=== PATIENT | female | born 1985 | race Caucasian/White ===

== ENCOUNTER → 2017-10-13 13:00 | Outpatient (CLI) | payer OTHER, SELFPAY ==
[2017-10-16 14:27] LABS: HPV APTIMA, High Risk Negative (Negative)
== END ==
PROVIDERS: Visit Provider Obstetrics & Gynecology
DX: Z12.4 Encounter for screening for malignant neoplasm of cervix (principal)
CPT/HCPCS: 88175; G0145

== ENCOUNTER → 2019-11-22 11:48 | Outpatient (CLI) | payer SELFPAY ==
[2019-11-03 10:27] VITALS: BMI 21.1
[2019-11-22 12:35] LABS: Estradiol 32.6 pg/mL; Follicle Stimulating Hormone 6.4 mIU/mL; Prolactin 6.7 ng/mL; Thyroid Stim Hormone (TSH) 3.05 uIU/mL (0.358-3.74)
== END ==
PROVIDERS: Referring Provider Obstetrics & Gynecology; Visit Provider Obstetrics & Gynecology
DX: N97.9 Female infertility, unspecified (principal)
CPT/HCPCS: 82670; 83001; 84146; 84443

== ENCOUNTER → 2019-12-10 07:36 | Outpatient (CLI) | payer SELFPAY ==
[2019-11-03 10:27] VITALS: BMI 21.1
[2019-12-12 09:41] LABS: Progesterone Level 14.35 ng/mL (See Comment)
== END ==
PROVIDERS: Referring Provider Nurse Practitioner Women's Health; Visit Provider Nurse Practitioner Women's Health
DX: N97.9 Female infertility, unspecified (principal)
CPT/HCPCS: 36415; 84144

== ENCOUNTER 2022-05-11 00:10 | Inpatient (IN) | payer OTHER, SELFPAY ==
[2022-05-11] VITALS (40 sets, daily range): BP systolic 99–145; BP diastolic 56–81; PULSE 77–112; RESP 14–20; TEMP 36.1–37.3; O2SAT 94–99; BMI 31.4
[2022-05-11] MEDS: Lactated Ringers 1,000 ML 50 ML IV (00:30)
[2022-05-11 00:59] LABS: Absolute Neutrophil Count 18.4 X10^3/uL (2.0-7.7); Basophil# 0.03 X10^3/uL; Basophil% 0.1 % (0-1); Hematocrit 38.5 % (37-47); Lymphocyte % 4.4 % (19-41); Mean Corp Hgb Conc 33.8 g/dL (32-36); Mean Corpuscular Hgb 28.4 pg (27.0-32.0); Mean Corpuscular Volume 84.1 fL (81-99); Mean Platelet Vol. 8.6 fl (6.2-12.0); Monocyte# 0.77 X10^3/uL; Monocyte% 3.8 % (0-10); NRBC Flagged by Analyzer 0 % (0-5); Neutrophil % 90.6 % (47-70); Platelet Count 239 K/mm3 (150-450); RBC Distribution Width CV 17.4 % (11.6-14.6); RBC Distribution Width SD 53.3 fl (35.1-43.9); Red Blood Count 4.58 M/mm3 (4.2-5.4); White Blood Count 20.3 K/mm3 (4.4-11.0)
[2022-05-11] MEDS: Oxytocin 15 Units/NS 250ml 15 UNITS/250 ML IV.SOLN 2 UNITS IV (01:06)
[2022-05-11 02:26] LABS: Rubella IgG Reactive (Nonreactive); Syphilis Antibodies Non-reactive
[2022-05-11 03:05] LABS: HIV - WCH Non-Reactive (Nonreactive); Hepatitis B Surface Antigen Non-Reactive (Nonreactive); Hepatitis C Antibody Non-Reactive (Nonreactive)
[2022-05-11] MEDS: LACTATED RINGERS 500 ML 999 ML IV ×3 (03:07→13:09)
[2022-05-11] MEDS: fentaNYL-bupivacaine (epidural) 100 ML BAG EPIDURAL ×3 (04:10→13:27)
[2022-05-11] MEDS: Lactated Ringers 1,000 ML 200 ML IV ×2 (04:40→10:20)
[2022-05-11 05:52] LABS: Bacteria 0 SEEN /hpf (None Seen); Mucous, Urine 0 SEEN /hpf (<or=2+); Squamous Epithelial Cells - UA 0 SEEN /hpf (5-10); White Blood Cells 0 SEEN /hpf (0-5)
[2022-05-11 07:35] LABS: Glucose, Dipstick Normal (Normal); Ketone-Dipstick 15 mg/dl (Negative); Leukocyte Esterase-Dipstick 25 /ul (Negative); Nitrite-Dipstick Negative (Negative); Occult Blood-Urine 150 /ul (Negative); Protein-Dipstick 30 mg/dl (Negative); Urine Bilirubin Dipstick Negative (Negative); Urine Urobilinogen Normal (Normal)
[2022-05-11 07:38] LABS: Color, Urine YELLOW (Yellow); Urine Clarity Clear (Clear)
[2022-05-11 07:39] LABS: Red Blood Cells-Urine 5-10 SEEN /hpf (0-5)
--- NOTE | 2022-05-11 08:08 | HP.PCM.OB_ITS ---
HPI - General General Date of Admission: 05/11/22 HPI Narrative MAKENZIE GARCIA, is a 36 F at 41.6 weeks gestation who presents with contractions and S.R.O.M yesterday. 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 Per axminster rug setter, patient's water broke yesterday around noon and she has been 9 cm and pushing with no progress. Patient's pain was becoming unbearable and she was brought in for an evaluation by axminster rug setter. has been uncomplicated. She did not complete 1 hour GCT or GBS swab and is refusing prophylactic antibiotics. Maternal Data Information SERJIO Calculator Estimated Delivery Date Method Current WG Current Estimate 04/28/22 LMP (Certain) 41w 6d PFSH PFS Medical History (Updated 05/11/22 @ 08:17 by Bárbara Veras CNM) ADHD Home Medications prenat.vits,angi,lez-zcxf-mjxal 1 tab PO DAILY 09/17/21 [History Last Taken 05/10/22] Allergy/AdvReac Type Severity Reaction Status Date / Time amoxicillin [From Amoxil] Allergy Mild Rash Verified 09/17/21 12:54 Family History Uncle Cancer melanoma COPD (chronic obstructive pulmonary disease) Grandmother Hypertension CVA (cerebral vascular accident) Surgical History S/P wisdom tooth extraction Social History (Updated 09/17/21 @ 12:57 by Tayler Delacruz NP, FIRER LOCOM[employer]IVE [employer]ANE-[employer]) adopted: No household members: spouse current occupational status: employed current occupation: [employer] pets and animals: Yes (avoid litter box) pets and animals: cat(s) Smoking Status: Never smoker alcohol intake: current details: social substance use type: does not use caffeine: Yes what type of physical activity do you participate in: other details: core exercises seatbelt use: always do you feel safe at home: Yes additional social history: 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 History 1 Elective abortions Hx Para 0 Spontaneous abortions Hx # Term Pregnancies Ectopic pregnancies Hx # Pregnancies Multiple births # of living children Visit Details OB Flowsheet Initial Weight: Not Recorded Date -?-?-?-?-?-?-?-?-?-?-?-?- EGA Weight BP Urine Prot -?-?-?-?-?-?-?-?-?-?-?-?- Glucose FHR FuHt Pres Dilation -?-?-?-?-?-?-?-?-?-?-?-?- Effaced St Visit Note 05/11/22 -?-?-?-?-?-?-?-?-?-?-?-?- 41w 6d 171 lb 12.8 oz 117/7 3 142/77 132/76 120/69 145/64 134/73 118/66 118/69 112/63 113/65 109/63 113/69 116/66 110/62 30 mg/dl (Negative) H -?-?-?-?-?-?-?-?-?-?-?-?- -?-?-?-?-?-?-?-?-?-?-?-?- NST FHR Rate Baby A Baseline: 125 Variability:: Moderate Accelerations:: 15 x 15 Decelerations:: None NST Reactive:: Yes FHR Category:: Category I Uterine Activity:: TOCO- reading 8-15 minutes, palpates moderate and relaxed in between ROS Eyes Eyes: Denies blurry vision, change in vision or spots in vision ENT HEENT: Denies dizziness or headache(s) Cardiovascular Cardiovascular: Denies abdominal pain, chest pain or dyspnea Respiratory/Chest Respiratory/Chest: Denies cough, dyspnea, shortness of breath at rest or shortness of breath with exertion Gastrointestinal Gastrointestinal: Denies abdominal pain, diarrhea or vomiting Genitourinary Genitourinary: Denies change in urinary stream, difficulty urinating or dysuria Musculoskeletal Musculoskeletal: Reports none Integumentary Integumentary: Denies rash Neurologic Neurologic: Denies dizziness, headache(s), memory loss or weakness Psychiatric Psychiatric: Reports none Vital Signs Vital Signs Vital Signs: 05/11/22 00:45 05/11/22 00:45 05/11/22 00:45 Temperature Temperature Source Temporal Pulse Rate 101 H Blood Pressure 117/73 BP Systolic 117 BP Diastolic 73 Pulse Ox 05/11/22 00:45 05/11/22 02:14 05/11/22 02:14 Temperature 98.1 F Temperature Source Pulse Rate 112 H Blood Pressure 142/77 H BP Systolic 142 BP Diastolic 77 Pulse Ox 05/11/22 02:14 05/11/22 02:14 05/11/22 03:55 Temperature 97.4 F L Temperature Source Temporal Pulse Rate 108 H Blood Pressure BP Systolic BP Diastolic Pulse Ox 05/11/22 03:55 05/11/22 03:57 05/11/22 03:57 Temperature Temperature Source Pulse Rate 110 H Blood Pressure 132/76 H BP Systolic 132 BP Diastolic 76 Pulse Ox 99 05/11/22 04:00 05/11/22 04:00 05/11/22 04:02 Temperature Temperature Source Pulse Rate 103 H Blood Pressure 120/69 BP Systolic 120 BP Diastolic 69 Pulse Ox 98 05/11/22 04:02 05/11/22 04:05 05/11/22 04:05 Temperature Temperature Source Pulse Rate 100 97 Blood Pressure BP Systolic BP Diastolic Pulse Ox 98 05/11/22 04:10 05/11/22 04:10 05/11/22 04:10 Temperature Temperature Source Pulse Rate 107 H Blood Pressure 145/64 H BP Systolic 145 BP Diastolic 64 Pulse Ox 97 05/11/22 04:12 05/11/22 04:12 05/11/22 04:15 Temperature Temperature Source Pulse Rate 107 H 111 H Blood Pressure 134/73 H BP Systolic 134 BP Diastolic 73 Pulse Ox 05/11/22 04:15 05/11/22 04:19 05/11/22 04:19 Temperature Temperature Source Pulse Rate 99 Blood Pressure 118/66 BP Systolic 118 BP Diastolic 66 Pulse Ox 97 05/11/22 04:19 05/11/22 04:20 05/11/22 04:20 Temperature Temperature Source Pulse Rate 98 Blood Pressure BP Systolic BP Diastolic Pulse Ox 94 97 05/11/22 04:24 05/11/22 04:24 05/11/22 04:25 Temperature Temperature Source Pulse Rate 101 H 108 H Blood Pressure 118/69 BP Systolic 118 BP Diastolic 69 Pulse Ox 05/11/22 04:27 05/11/22 04:27 05/11/22 04:30 Temperature Temperature Source Pulse Rate 100 96 Blood Pressure 112/63 BP Systolic 112 BP Diastolic 63 Pulse Ox 05/11/22 04:30 05/11/22 04:33 05/11/22 04:33 Temperature Temperature Source Pulse Rate 82 Blood Pressure 113/65 BP Systolic 113 BP Diastolic 65 Pulse Ox 96 05/11/22 04:35 05/11/22 04:35 05/11/22 04:37 Temperature Temperature Source Pulse Rate 94 Blood Pressure 109/63 BP Systolic 109 BP Diastolic 63 Pulse Ox 98 05/11/22 04:37 05/11/22 04:40 05/11/22 04:40 Temperature Temperature Source Pulse Rate 91 81 Blood Pressure BP Systolic BP Diastolic Pulse Ox 97 05/11/22 04:37 05/11/22 04:37 05/11/22 05:31 Temperature 97.8 F Temperature Source Temporal Pulse Rate Blood Pressure 113/69 BP Systolic 113 BP Diastolic 69 Pulse Ox 05/11/22 05:31 05/11/22 05:31 05/11/22 05:31 Temperature 97.1 F L Temperature Source Temporal Pulse Rate 95 Blood Pressure BP Systolic BP Diastolic Pulse Ox 05/11/22 07:24 05/11/22 07:24 05/11/22 06:39 Temperature Temperature Source Temporal Pulse Rate 90 Blood Pressure 116/66 BP Systolic 116 BP Diastolic 66 Pulse Ox 05/11/22 06:39 05/11/22 07:24 05/11/22 07:24 Temperature 97.8 F 98.0 F Temperature Source Temporal Pulse Rate Blood Pressure BP Systolic BP Diastolic Pulse Ox 05/11/22 08:06 05/11/22 08:06 05/11/22 08:06 Temperature Temperature Source Temporal Pulse Rate 84 Blood Pressure 110/62 BP Systolic 110 BP Diastolic 62 Pulse Ox 05/11/22 08:06 Temperature 97.5 F L Temperature Source Pulse Rate Blood Pressure BP Systolic BP Diastolic Pulse Ox Weight Weight: 171 lb 12.8 oz Body Mass Index (BMI) 31.4 Physical Exam Const alert, oriented x3 and no apparent distress General Appearance: cooperative Orientation / Consciousness: awake Exam Limitations: no limitations HEENT normocephalic Head and Scalp: normal to inspection Eyes General Eye: normal appearance of both eyes Neck full ROM and no lymphadenopathy Lymph Lymphatic: no lymphadenopathy noted Chest inspection of chest normal Resp normal respiratory effort, normal air movement and clear to auscultation bilaterally Effort and Inspection: able to speak in complete sentences and symmetric chest movement Cardio regular rate and regular rhythm GI normal to inspection, nondistended, normoactive bowel sounds Manual OB Exam: presentation cephalic, dilated 7, effaced 70 and station - 1 Back/Spine normal ROM Extremity full ROM and no calf tenderness Skin no rashes or lesions noted General Skin Exam: no breakdown Neuro oriented x3 and CN's II-XII intact bilaterally Psych mental status grossly normal and thought process normal Labs Labs Labs: Blood Type A POSITIVE Antibody Screen NEGATIVE Hct 38.5 % (37-47) Hgb 13.0 g/dL (12.0-15.0) Syphilis Total Ab Non-reactive Rubella IgG Antibody Reactive (Nonreactive) Hep Bs Antigen Non-Reactive (Nonreactive) HIV 1&2 Antibody Non-Reactive (Nonreactive) Assessment & Plan (1) Post term , 41 weeks: (2) Spontaneous rupture of amniotic membranes: PLAN: Plan Admit to labor and delivery Routine labs- GBS UNKNOWN- refusing antibiotics CE- /-1 Contractions- irregular via TOCO Vertex - caput palpated with exam Epidural when indicated Start Pitocin IV and titrate per policy Dr. Vora involved with admission and plan of care Wheelchair Van Operator First Responder notified
[2022-05-11 08:28] LABS: Chlamydia Trachomatis by PCR Negative (Negative); Neisserai gonorrhoeae by PCR Negative (Negative); Probe Check PASS; Sample Adequacy Control PASS; Specimen Processing Control PASS
--- NOTE | 2022-05-11 11:20 | PCM.PN.BLA ---
Progress Note Patient seen at bedside. Comfortable with epidural. Denies pain. FHT tracing Cat. 2 with bouts of minimal variability and occasional late decelerations. Assessment & Plan Assessment/Plan (1) Category II heart rate tracing during labor and delivery: (2) Post term , 41 weeks: (3) Spontaneous rupture of amniotic membranes: (4) Meconium in amniotic fluid: PLAN: Plan CE /-1, unchanged from this morning's exam Light meconium noted in fluid on pad Cat. 2 tracing- reactive to scalp stimulation and interventions Discussed with patient and concern over heart rate tracing and no continued cervical change Dr. Vora notified and viewing strip
--- NOTE | 2022-05-11 12:05 | PCM.PN.BLA ---
Progress Note Decision for primary section via Dr. Vora. Discussed this decision with patient and at bedside. Questions answered. Nursing in room. Dr. Vora in route to hospital.
[2022-05-11] MEDS: Oxytocin 15 Units/NS 250ml 15 UNITS/250 ML IV.SOLN 83 UNITS IV (13:55)
[2022-05-11] MEDS: Acetaminophen 500 MG Tablet PO (14:03)
[2022-05-11] MEDS: Sodium Citrate/Citric Acid 30 ML UDC PO (14:33)
[2022-05-11] MEDS: Cefazolin 2 GM in 0.9% Normal Saline 100 ML IV (14:40)
[2022-05-11] MEDS: Methylergonovine 0.2 MG/ML Ampul IM (15:09)
--- NOTE | 2022-05-11 15:30 | PLAC_PTH ---
PATIENT: MAKENZIE GARCIA LOC: [facility] U#:[id number] AGE/SX: 36/F ROOM: [facility] RE05/11/[address]: Dr. Elizabeth Vora MD : 1985 BED: 1 DIS: 05/13/2022 SPEC #: [id number] RECD: 05/11/22 20:13 STATUS: MITCH REEmile #: [id number] PILO: 05/11/22 15:[address]: Elizabeth Vora DEPT: SURGICAL PATHOLOGY RECD BY: Hallie Carvalho ENTERED: 05/12/22 10:25 SP TYPE: PLACENTA OTHR DR: No Primary Care Phys Tissues: Placenta, NOS Procedures: Surgery Specimen Level V HEADER OPERATION: Primary section PRE-OP DIAGNOSIS: Prolonged rupture of membranes TISSUE SUBMITTED: Placenta MICROSCOPIC DIAGNOSIS Placenta: Placental disc - third trimester placenta (485 gm). Membranes - acute chorioamnionitis. Umbilical cord - three blood vessels and acute funisitis. SJ:philippe 05/14/2022 MICROSCOPIC DESCRIPTION Slides are reviewed. GROSS DESCRIPTION SPECIMEN: PLACENTA / CLINICAL INFORMATION: A. Weight: 3.795 kg B. Gestational Age: 41 weeks C. Sex: Male PLACENTAL WEIGHT (POST FIXATION): 485 gm PLACENTAL DIMENSIONS: 18 x 16 x 3 cm PLACENTAL SHAPE: Usual ovoid PLACENTAL WEIGHT FOR GESTATIONAL AGE: Within 10-99th percentile MEMBRANES - Present A. Insertion: Marginal B. Site of rupture from edge: 3 cm from edge of placental disc C. Color of membrane: Noriega-mucoidy D. Abnormalities: None UMBILICAL CORD - Present A. Color: Noriega-roach B. Insertion: Paracentral C. Length: 34 cm D. Diameter: 1 cm E. Number of vessels: Three F. Abnormalities: None PLACENTAL DISC - Present A. Color of surface: Noriega-roach B. surface abnormalities: None C. Maternal cotyledons: Intact with minimal tears D. Attached retro placental clot: No clot E. Cut surface: Dark red and spongy F. Lesions: None G. Separate clot: Absent SECTIONS SUBMITTED: 1. Membrane roll 2. Cord, maternal end 3. Cord, end 4. Placental disc, and maternal surfaces 5. Placental disc, and maternal surfaces 6. Placental disc, and maternal surfaces SJ:philippe 05/13/2022 TC:2 CPT: 97540
--- NOTE | 2022-05-11 15:39 | OP.PCM_ITS ---
Assessment & Plan (1) Meconium in amniotic fluid: (2) Category II heart rate tracing during labor and delivery: (3) Post term , 41 weeks: (4) Arrest of descent, delivered, current hospitalization: (5) deliv NOS-unsp: (6) Single live : (7) CPD (cephalo-pelvic disproportion): Maternal Data Information SERJIO Calculator Estimated Delivery Date Method Current WG Current Estimate 04/28/22 LMP (Certain) 41w 6d Final SERJIO: 04/28/22 Gestational age: 41 6/7 Details Operative Information Date of Procedure: 05/11/22 Pre-Operative Diagnosis: CPD, arrest of descent Post-Operative Diagnosis: same Classification: SUSSY Procedure Type: low transverse water pollution scientist #1: Beth Diana Type of Anesthesia: Epidural Anesthesiologist: Edie Norman Antibiotic Given: Ancef 2 grams IV x1 and Zithromax 500 mg/5 mL X1 Drain: Lopez to straight drain Estimated Blood Loss: 900 Fluids Replaced: 1000 Procedure Start Time: 14:58 Procedure Stop Time: 15:39 Time of Delivery: 15:03 Findings Description of Procedure: Patient arrived to labor and delivery after she been laboring at home and had spontaneous rupture membranes. She was 41-6/7 weeks. We tried to augment the labor with Pitocin. However even after augmentation she had minimal cervical change and dilation. The head was sent asynclitic and there was significant caput and molding. We are prepared to do a delivery, then were bumped by a more urgent delivery. heart tones had been category 2 tracing but had moderate variability and the time that the other patient had a prolonged deceleration and was taken for a . When that section was completed the patient was still 7 cm and agreed to proceed with section. Clinically, the patient meets criteria for cephalopelvic disproportion The patient was taken to the operating room. She was prepped and draped in the dorsal supine position with a leftward tilt. A Pfannenstiel skin incision was made approximately 2 cm above the symphysis pubis and carried through to underlying layer fascia with the scalpel. The fascia was incised incised in the midline and extended laterally with the Booker scissors. The fascia was dissected off the rectus muscles with blunt and sharp dissection. The rectus muscles were in the midline and the peritoneum was entered bluntly. The peritoneal incision was stretched and the bladder blade was placed. The uterine incision was made in a low transverse fashion with the scalpel and extended superiorly and inferiorly with blunt dissection. The amniotic membranes were ruptured bluntly and clear amniotic fluid returned. The infant's head was brought to the incision in the flexed position and delivered without difficulty. The remainder of the infant was delivered with gentle traction and fundal pressure in the standard fashion. The mouth and nares were bulb suctioned. The cord was clamped and cut as the infant was stimulated. Cord clamping was delayed. The was handed off to the waiting nursing staff. The placenta was delivered with fundal massage and gentle traction in the standard fashion. The uterus was exteriorized and cleared of all clots and debris. There is a large intramural fibroid is not impinging on the fallopian tube its on the mid fundus on the left side. Not protruding into the cavity or distorting the cavity either. It was not limiting the descent of the fetus. . The uterine incision was closed with #1 Vicryl in a running locked fashion. A second layer of the same suture was used in an imbricating fashion. The incision was examined and was found to be hemostatic. Several 0 Vicryl cehcgr-sa-mczvs sutures were needed in a bleeding sinus to obtain hemostasis. Some Hilaria was placed over the incision. The uterus was placed back into the peritoneal cavity and hemostasis was again confirmed. The rectus muscles were examined and any bleeding was Bovie cauterized. The parietal peritoneum and rectus muscles were closed en bloc with an 0 Vicryl running suture. The surgical teams outer gloves were then changed. The rectus fascia was examined and any bleeding was Bovie cauterized and the rectus fascia was closed with 1 Vicryl suture in a running standard fashion. The subcutaneous tissue was examining and any bleeding was Bovie cauterized. The subcutaneous tissue was reapproximated with 3-0 Vicryl suture. The skin was closed in a subcuticular fashion by the INSTRUMENT REPAIR SUPERVISOR with me present in the labor and delivery suite. I performed the remainder of the procedure with assistance. All sponge, lap, and needle counts were correct. The patient was taken to her room for recovery in a stable condition. Presentation: Positive for Vertex (acynclitic) Amniotic Membrane Rupture Type: Spontaneous Amniotic Fluid Description: Moderate meconium Placental Delivery Description: Expressed Placenta Disposition: Sent to Pathology Cord Vessel Description: 3 Vessels Cord Entanglement: None Cord Gases: ABG and VBG Infant A Gender: Male (1 minute): 9 (5 minute): 9 Delayed Cord Clamping: Yes Complications Complications: none
[2022-05-11] MEDS: Ketorolac 30 MG/ML Syringe IV ×2 (16:13→22:03)
[2022-05-11] MEDS: 0.9% Saline Lock 10 ML Syringe IV ×2 (16:14→22:03)
--- NOTE | 2022-05-11 18:05 | NURSING ---
Epidural catheter removed - blue tip intact.
[2022-05-11] MEDS: Lactated Ringers 1,000 ML 100 ML IV (19:04)
[2022-05-11] MEDS: Acetaminophen 500 MG Tablet 1000 MG PO (20:11)
[2022-05-11 20:20] LABS: Pathology Specimen OB SEE PATHOLOGY REPORT
--- NOTE | 2022-05-11 21:28 | NURSING ---
this RN reviewed and agrees with LWatersRN labor documentation. This RN caring for pt alongside LWatersRN.
[2022-05-12] VITALS (8 sets, daily range): BP systolic 91–112; BP diastolic 48–66; PULSE 82–96; RESP 14–18; TEMP 36.1–36.8; O2SAT 97–98
--- NOTE | 2022-05-12 00:06 | NURSING ---
pt asleep upon vital sign assessment. this RN woke pt up and assessed if she was dizzy or lightheaded. pt asymptomatic depsite low BP at this time.
[2022-05-12] MEDS: Acetaminophen 500 MG Tablet 1000 MG PO ×4 (02:25→21:39)
[2022-05-12] MEDS: 0.9% Saline Lock 10 ML Syringe IV (03:24)
--- NOTE | 2022-05-12 03:24 | NURSING ---
battery charger conveyor line made aware of low BP. pt baseline BP low overnight. pt asymptomatic and bleeding WNL , scant to small.
[2022-05-12] MEDS: Ketorolac 30 MG/ML Syringe IV ×2 (03:25→10:27)
[2022-05-12 05:35] LABS: Hematocrit 30.3 % (37-47); Hemoglobin 9.9 g/dL (12.0-15.0); Mean Corp Hgb Conc 32.7 g/dL (32-36); Mean Corpuscular Hgb 28.1 pg (27.0-32.0); Mean Corpuscular Volume 86.1 fL (81-99); Mean Platelet Vol. 8.6 fl (6.2-12.0); Platelet Count 195 K/mm3 (150-450); RBC Distribution Width SD 56.9 fl (35.1-43.9); Red Blood Count 3.52 M/mm3 (4.2-5.4); White Blood Count 13.2 K/mm3 (4.4-11.0)
--- NOTE | 2022-05-12 08:15 | PN.OBGYN_ITS ---
Subjective Subjective Doing well per patient and nursing staff. Ambulating and taking PO without difficulty. Voiding and passing flatus. Pain controlled. Bottlefeeding. Denies headache, visual changes, chest pain, shortness of breath, leg pain or increased bleeding. Lochia normal. Objective Data Objective Data Vital Signs: Vital Signs Temp Pulse Resp BP Pulse Ox O2 Del Method 97.7 F L 95 16 94/58 L 97 Room Air 05/12/22 03:18 05/12/22 03:18 05/12/22 03:18 05/12/22 03:27 05/12/22 03:18 05/12/22 03:18 Oxygen Delivery Method Room Air Weight: 171 lb 12.8 oz Body Mass Index (BMI) 31.4 Intake & Output: Intake and Output for Last 24 Hours 05/10/22 05/11/22 05/12/22 23:59 23:59 23:59 Intake Total 4586.25 / 4586.25 735 / 735 Output Total 2450 / 2450 800 / 800 Balance 2136.25 / 2136.25 -65 / -65 Lab / Micro Data Result Diagrams: 05/12/22 05:12 Labs: Laboratory Results - last 24 hr 05/11/22 05:30: Chlam trachomat DNA PCR Negative, N.gonorrhoeae DNA (PCR) Nega tive 05/12/22 05:12: WBC 13.2 H, RBC 3.52 L, Hgb 9.9 L, Hct 30.3 L, MCV 86.1, MCH 28. 1, MCHC 32.7, RDW Std Deviation 56.9 H, RDW Coeff of Satinder 18.0 H, Plt Count 195, MPV 8.6 ROS Constitutional Constitutional: Reports systems reviewed and no addt'l complaints, except as documented; Denies headache(s) Eyes Eyes: Denies acute decrease in peripheral vision, blurry vision or change in vision ENT HEENT: Reports systems reviewed and no addt'l complaints, except as documented Cardiovascular Cardiovascular: Denies chest pain or dizziness Respiratory/Chest Respiratory/Chest: Denies cough, dyspnea, dyspnea on exertion, shortness of breath at rest or shortness of breath with exertion Gastrointestinal Gastrointestinal: Denies abdominal pain, diarrhea, nausea or vomiting Genitourinary Genitourinary: Denies abdominal discomfort Musculoskeletal Musculoskeletal: Denies limited range of motion Integumentary Integumentary: Reports systems reviewed and no addt'l complaints, except as documented Neurologic Neurologic: Reports systems reviewed and no addt'l complaints, except as documented Psychiatric Psychiatric: Reports systems reviewed and no addt'l complaints, except as documented Endocrine Endocrinology: Reports systems reviewed and no addt'l complaints, except as documented Hematologic/Lymphatic Hematologic/Lymphatic: Reports systems reviewed and no addt'l complaints, except as documented Allergic/Immunologic Allergic/Immunologic: Reports systems reviewed and no addt'l complaints, except as documented Physical Exam Const alert and oriented x3 General Appearance: cooperative Orientation / Consciousness: awake, oriented to person, oriented to place and oriented to time Exam Limitations: no limitations HEENT normocephalic Head and Scalp: normal to inspection, normocephalic and atraumatic Face and Sinus: normal facial exam Eyes General Eye: normal appearance of both eyes Neck full ROM Chest Chest: symmetrical chest wall rise Resp normal respiratory effort and normal air movement Auscultation: clear to auscultation bilaterally Cardio regular rate, regular rhythm, S1 normal heart sound, S2 normal heart sound, no murmurs, no rub, no gallops and no clicks GI normal to inspection, nondistended, normoactive bowel sounds and non-tender appearance of the vagina normal Bladder / Kidney Exam: no CVA tenderness Back/Spine normal ROM Extremity normal to inspection and full ROM Skin no rashes or lesions noted Neuro oriented x3, CN's II-XII intact bilaterally and moves all extremities Sensorium / Orientation: awake, alert and oriented to person Motor Exam: clonus absent Deep Tendon Reflexes: Rt Patellar (L4): 2+ and Lt Patellar (L4): 2+ Assessment & Plan (1) CPD (cephalo-pelvic disproportion): (2) Single live : (3) deliv NOS-unsp: (4) Arrest of descent, delivered, current hospitalization: PLAN: Plan 1) Routine PP care 2) Bottlefeeding 3) VS stable 4) I&Os 5) Pain management. 6) Planning D/C home tomorrow
[2022-05-12] MEDS: Senna/Docusate Sodium 1 Tablet PO (10:27)
--- NOTE | 2022-05-12 17:25 | CASEMGMT ---
Social Work Consult received and noted for history of trauma. Chart reviewed. Noted MOB had planned for a low intervention at home, but ended with a delivery. Collaboration with nursing staff and farm field manager today on how patient and baby are doing. Patient reportedly having a hard time with decisionmaking surrounding picking a farm field manager for follow up, reportedly identifying this decision as overwhelming. Will plan to try and see MOB on 05.13.2022 for assessment, emotional support, and provision of resources as indicated. -FIORELLA [place], PROFESSIONAL SYSTEM ADMINISTRATOR
[2022-05-12] MEDS: Ibuprofen 600 MG Tablet PO ×2 (17:50→23:59)
[2022-05-13 01:50] VITALS: BP 97/54; PULSE 74; RESP 16; TEMP 37.1; O2SAT 96
[2022-05-13] MEDS: Acetaminophen 500 MG Tablet 1000 MG PO ×3 (03:43→15:34)
[2022-05-13] MEDS: Ibuprofen 600 MG Tablet PO ×2 (06:07→11:34)
--- NOTE | 2022-05-13 06:31 | NURSING ---
Upon entering pt room at 0605, pt stated she feels kind of sick, that she has been waking up coughing and gaging the last few hours and unsure what it is. Other then that she feels fine besides some incisional pain. She states she knows when her blood sugar falls low and that when she has felt like this in the past she has passed out. Pt lars a juice and laid down in bed. When asked, she said she does not feel like she has to pass out right now. Her right arm feels swollen and the forearm area is a little sore she said. Upon inspection, maybe slight swelling present but no redness or heat on her arm. That arm is where her IV was located before it was taken out. Stated she might want another CBC drawn today if she continues to feel this way to possibly look at her HGB. Will notify oncoming nurse of symptoms. Pt stated she will let someone know if symptoms do not improve or worsen.
--- NOTE | 2022-05-13 07:40 | PCM.DC.SUM ---
Providers Date of Admission: 05/11/22 Primary Care Physician: No Primary Care Phys Reason For Visit: PRIMARY C SECTION Diagnosis Discharge Diagnosis (1) CPD (cephalo-pelvic disproportion): Status: Acute Code(s): O33.9 - Maternal care for disproportion, unspecified (2) Single live : Status: Acute Code(s): Z37.0 - Single live (3) deliv NOS-unsp: Status: Acute (4) Arrest of descent, delivered, current hospitalization: Status: Acute Code(s): O62.1 - Secondary uterine inertia Medications at Discharge Home Medications prenat.vits,angi,zas-egim-rlzof 1 tab PO DAILY 09/17/21 acetaminophen 500 mg tablet 1,000 mg PO Q6H #0 tabs 05/13/22 ibuprofen 600 mg tablet 600 mg PO Q6H #0 tabs 05/13/22 sennosides 8.6 mg-docusate sodium 50 mg tablet (Stool Softener-Stimulant Laxative) 1 - 2 tab PO DAILY #0 tabs 05/13/22 Hospital Course Operations section Summary of Care Provided Hospital Course: Patient had primary section. Hospital course was uneventful. Physical Exam Narrative Patient seen at bedside. Feeling good. Ambulating and voiding without difficulty. Passing flatus. with minimal support. Denies any headache, vision changes, dizziness, SOB or CP. Desires discharge home today. Const alert and no apparent distress General Appearance: cooperative and comfortable Exam Limitations: no limitations HEENT normocephalic Eyes General Eye: normal appearance of both eyes Neck full ROM General: normal visual inspection Chest Chest: symmetrical chest wall rise Resp normal respiratory effort and normal air movement Effort and Inspection: symmetric chest movement Auscultation: clear to auscultation bilaterally Cardio regular rate and regular rhythm GI normal to inspection, nondistended, normoactive bowel sounds Back/Spine normal ROM Extremity full ROM and no calf tenderness General Extremity: normal exam except as noted Skin no rashes or lesions noted Neuro CN's II-XII intact bilaterally Psych mental status grossly normal Weight / BMI Weight Weight: 171 lb 12.8 oz Body Mass Index (BMI) 31.4 ABG / Lab / Microbiology Data Result Diagrams: 05/13/22 08:45 Laboratory: Laboratory Results - last 24 hr 05/13/22 08:45: WBC 11.1 H, RBC 3.08 L, Hgb 8.7 L, Hct 26.8 L, MCV 87.0, MCH 28.2, MCHC 32.5, RDW Std Deviation 56.5 H, RDW Coeff of Satinder 17.7 H, Plt Count 181, MPV 8.7, Immature Gran % (Auto) 0.700, Neut % (Auto) 85.1 H, Lymph % (Auto) 10.2 L, Piatt % (Auto) 3.4, Eos % (Auto) 0.4, Baso % (Auto) 0.2, Absolute Neuts (auto) 9.5 H, Absolute Lymphs (auto) 1.14, Nucleated RBC % 0 D/C Instructions Discharge Diet: No restrictions Discharge Activity: Return to Normal Activity May resume sexual activity in: 6-8 weeks Weight Bearing Status: Weight bearing as tolerated Call your doctor if your incision/area has: Continuous Slow Oozing, Sudden Increased Bleeding, Increased Pain/ Swelling, Increased Redness, Foul Smelling Discharge and Swelling at the incision site Call your doctor if you observe: Fever of 101 or Higher, Inability to urinate, Inability to have a bowel movement, Using more than 1 pad per hour, Calf discomfort and Uncontrolled pain Change Dressing in: leave in place till F/U Remove Dressing in: leave in place till F/U Please Follow Up With: Bárbara Veras CNM When: 1 week in office [address] [place] [address] Call and make appointment Meaningful Use Info Meaningful Use Diagnoses (Choose all that apply): None applicable Discharge Plan Admission Admit Date/Time: 05/11/22 00:10 Primary Reason for Your Visit: Labor and Delivery Attending Provider: Elizabeth Vora Primary Care Provider: Care Physician,Patience Primary Discharge Orders/Prescriptions Prescriptions: New acetaminophen 500 mg Tablet 1,000 mg PO Q6H Qty: 0 0RF sennosides-docusate sodium [Stool Softener-Stimulant Laxat] 8.6-50 mg Tablet 1 - 2 tab PO DAILY Qty: 0 0RF ibuprofen 600 mg Tablet 600 mg PO Q6H Qty: 0 0RF Continued prenat.vits,angi,ozq-ludo-gnrzr Tablet 1 tab PO DAILY Referrals / Follow Up: Care Physician,No Primary [Primary Care Provider] - Disposition Disposition (needs filled in before D/C Order can be placed): Home, Self Care
[2022-05-13 08:05] VITALS: BP 109/67; PULSE 76; RESP 18; TEMP 36.8; O2SAT 98
[2022-05-13 08:55] LABS: Absolute Lymphocyte Count 1.14 X10^3/uL (0.83-4.51); Absolute Neutrophil Count 9.5 X10^3/uL (2.0-7.7); Basophil# 0.02 X10^3/uL; Basophil% 0.2 % (0-1); Eosinophil# 0.04 X10^3/uL; Eosinophils% 0.4 % (0-5); Hematocrit 26.8 % (37-47); Hemoglobin 8.7 g/dL (12.0-15.0); Lymphocyte # 1.14 X10^3/ul (0.83-4.51); Lymphocyte % 10.2 % (19-41); Mean Corp Hgb Conc 32.5 g/dL (32-36); Mean Corpuscular Hgb 28.2 pg (27.0-32.0); Mean Platelet Vol. 8.7 fl (6.2-12.0); Monocyte# 0.38 X10^3/uL; Monocyte% 3.4 % (0-10); NRBC Flagged by Analyzer 0 % (0-5); Neutrophil # 9.47 X10^3/uL (2.7-7.7); Neutrophil % 85.1 % (47-70); Platelet Count 181 K/mm3 (150-450); RBC Distribution Width CV 17.7 % (11.6-14.6); RBC Distribution Width SD 56.5 fl (35.1-43.9); Red Blood Count 3.08 M/mm3 (4.2-5.4); White Blood Count 11.1 K/mm3 (4.4-11.0)
[2022-05-13] MEDS: Senna/Docusate Sodium 1 Tablet PO (09:56)
--- NOTE | 2022-05-13 10:14 | NURSING ---
Pt and significant other both CPR certified.
[2022-05-13 15:30] VITALS: BP 117/70; PULSE 89; RESP 18; TEMP 36.9; O2SAT 98
== END 2022-05-13 16:35 | disposition home or self-care (01) | DRG 788 ==
PROVIDERS: Advanced Practice Midwife; Admitting Provider Obstetrics & Gynecology; Visit Provider Obstetrics & Gynecology
DX: O48.0 Post-term pregnancy (principal); O33.9 Maternal care for disproportion, unspecified; O62.1 Secondary uterine inertia; O76 Abnormality in fetal heart rate and rhythm complicating labor and delivery; O77.0 Labor and delivery complicated by meconium in amniotic fluid; Z37.0 Single live birth; Z3A.41 41 weeks gestation of pregnancy
CPT/HCPCS: 59025; 59050; 81001; 85025; 85027; 86703; 86762; 86780; 86803; 86850; 86900; 86901; 87340; 87491; 87591; 88307; 99218; J7120; A4216; G0378; J2405